=== PATIENT | female | born 1955 | race Caucasian/White ===

== ENCOUNTER 2022-05-26 12:10 | Emergency (ER) | payer MEDICARE, OTHER ==
[~2022-05-26] VITALS: Ht 157.5 cm; Wt 51.7 kg
--- NOTE | 2022-05-26 12:27 | NUR ---
Dr Greenwood at the bedside for MSE.
[2022-05-26] MEDS ORDERED: IV NORMAL SALINE 1000 ML BAG IV ONE (12:30)
[2022-05-26] MEDS ORDERED: TDAP DIPH,PERTUSS,TET VAC/PF 0.5 ML DISP.SYRIN IM ONE ×2 (12:45→12:54)
[2022-05-26] MEDS ORDERED: ACETAMINOPHEN 325 MG TABLET PO ONE (13:00)
[2022-05-26] MEDS ORDERED: ACETAMINOPHEN ES 500 MG TABLET ONE (13:00)
[2022-05-26 13:06] LABS: HEMATOCRIT 41.7 % (31.2-41.9); MEAN CORPUSCULAR HEMOGLOBIN 29.4 uug (24.7-32.8); MEAN CORPUSCULAR VOLUME 91.1 fL (75.5-95.3); PLATELET COUNT (AUTO) 261 K/uL (179-408)
[2022-05-26 13:17] LABS: CARBON DIOXIDE 30 mmol/L (21-32); CHLORIDE 107 mmol/L (98-107); CREATININE 0.6 mg/dL (0.6-1.3); GLUCOSE 118 mg/dL (74-106); POTASSIUM 4.1 mmol/L (3.5-5.1); UREA NITROGEN, BLOOD 18 mg/dL (7-18)
[2022-05-26 13:26] LABS: ALANINE AMINOTRANSFERASE 16 U/L (14-59); ALKALINE PHOSPHATASE 50 U/L (50-136); ASPARTATE AMINOTRANSFERASE 16 U/L (15-37); BILIRUBIN,DIRECT 0.1 mg/dL (0.0-0.2); BILIRUBIN,TOTAL 0.6 mg/dL (0.2-1.0); TOTAL PROTEIN, SERUM 6.6 g/dL (6.4-8.2)
[2022-05-26] MEDS ORDERED: LIDOCAINE 1%-EPI 1:100,000 20 ML VIAL ONE (13:29)
--- NOTE | 2022-05-26 13:59 | NUR ---
Cleaned and dress abrasions site on Rt shoulder, Rt FA, Rt knee and forehead, and applied and aid per pt request.
[2022-05-26] MEDS ORDERED: LIDOCAINE 1%-EPI 1:100,000 20 ML VIAL IJ ONE (14:15)
--- NOTE | 2022-05-26 15:15 | NUR ---
IV removed. Catheter intact and site benign. Pressure and 4x4 gauze applied to site. No bleeding noted.
[2022-05-26 15:16] VITALS: BP 117/60
--- NOTE | 2022-05-26 15:36 | NUR ---
Patient discharged to home in stable condition. Written and verbal after care instructions given. Patient and pt's sister/caregiver verbalize understanding of instructions. Stressed follow up or return to ER for worsening s/s.
== END 2022-05-26 15:37 | disposition home or self-care (01) ==
LOC: ER 12:30
DX: S81.812A Laceration without foreign body, left lower leg, initial encounter (principal); S00.81XA Abrasion of other part of head, initial encounter; R51.9 Headache, unspecified; M54.2 Cervicalgia; Z88.1 Allergy status to other antibiotic agents; Z88.8 Allergy status to other drugs, medicaments and biological substances; W01.0XXA Fall on same level from slipping, tripping and stumbling without subsequent striking against object, initial encounter; Y93.89 Activity, other specified; Y92.89 Other specified places as the place of occurrence of the external cause; Y99.8 Other external cause status
CPT/HCPCS: 99285; 70450; 96360; 71045; 80076; 80048; 85025; 85730; 86850; 86900; 86901; 84484; 36415; 73590; 73610; 72125; 90715; 90471; 12002; 93005; J3490; J7040; A4663; A9150

== ENCOUNTER 2022-06-06 10:33 | Emergency (ER) | payer MEDICARE, OTHER ==
[~2022-06-06] VITALS: Ht 157.5 cm; Wt 51.7 kg
--- NOTE | 2022-06-06 10:48 | NUR ---
seen and examined by MD Olivares
--- NOTE | 2022-06-06 10:59 | NUR ---
suture removal done by MD Olivares
--- NOTE | 2022-06-06 11:00 | NUR ---
Patient discharged to home in stable condition. Written and verbal after care instructions given. Patient verbalizes understanding of instructions. Stressed follow up or return to ER for worsening s/s.
[2022-06-06 11:03] VITALS: BP 120/80
== END 2022-06-06 11:04 | disposition home or self-care (01) ==
LOC: ER 10:33
DX: S81.812D Laceration without foreign body, left lower leg, subsequent encounter (principal); M20.022 Boutonniere deformity of left finger(s); Z88.1 Allergy status to other antibiotic agents; Z88.8 Allergy status to other drugs, medicaments and biological substances; X58.XXXD Exposure to other specified factors, subsequent encounter
CPT/HCPCS: A4663